=== PATIENT | female | born 1960 | race Caucasian/White ===

== ENCOUNTER 2018-03-09 21:29 | Inpatient (IN) | payer MEDICAID, OTHER ==
[~2018-03-09] VITALS: Ht 167.6 cm; Wt 83.9 kg
[2018-03-09 21:45] VITALS: BP 128/85
--- NOTE | 2018-03-09 21:48 | NUR ---
TO LOBBY, A/W BED AMBULATORY, SUBHASH LIM NOTED
--- NOTE | 2018-03-09 21:48 | NUR ---
PT PRESENTS TO ED WITH LEFT LOWER LEG PAIN 10/10 X3 DAYS. PT STATES SHE HAS CHRONIC LEFT HIP PAIN WITH INFECTOINS AND IS SEEING MD FOR EXISTING PROBLEMS. SHE C/O SEVERE 10/10 NEW LEFT LOWER LEG PAIN WITH REDNESS AND EDEMA. PT GAIT UNSTEADY D/T PAIN. VSS. SKIN INTACT. A&Ox4. POSTIONED IN BED FOR COMFORT WITH SIDE RAIL UP. ER MD AWARE. CONTINUE.
[2018-03-09] MEDS ORDERED: MORPHINE SULFATE 4 MG/ML SYR IVP ONE (23:10)
[2018-03-09] MEDS ORDERED: cefTRIAXone 2,000 MG in DEXTROSE 5% 100 ML IV ONE (23:10)
[2018-03-09] MEDS ORDERED: cefTRIAXone 2,000 MG VIAL ONE (23:23)
[2018-03-09 23:48] LABS: BASOPHILS % (AUTO) 0.6 % (0.0-2.0); EOSINOPHILS # (AUTO) 0.4 K/uL (0-0.4); EOSINOPHILS % (AUTO) 6.5 % (0.0-4.0); HEMATOCRIT 41.8 % (36-48); HEMOGLOBIN 14.3 g/dL (12.0-16.0); LYMPHOCYTES # (AUTO) 2.9 K/uL (2.5-16.5); LYMPHOCYTES % (AUTO) 41.7 % (20.5-51.1); MEAN CORPUSCULAR HEMOGLOBIN 31 pg (27-31); MEAN CORPUSCULAR HGB CONC 34 g/dL (33-37); MEAN CORPUSCULAR VOLUME 90.6 fL (80-94); MONOCYTES # (AUTO) 0.4 K/uL (0.8-1.0); MONOCYTES % (AUTO) 6.1 % (1.7-9.3); NEUTROPHILS # (AUTO) 3.1 K/uL (1.8-7.7); NEUTROPHILS % (AUTO) 45.1 % (42.2-75.2); PLATELET COUNT (AUTO) 218 K/uL (140-450); RED BLOOD CELL COUNT(AUTO) 4.61 MIL/uL (4.20-5.40); RED CELL DISTRIBUTION WIDTH 13.2 % (11.6-13.7); WHITE BLOOD COUNT (AUTO) 6.9 K/uL (4.8-10.8)
[2018-03-09 23:49] LABS: APPEARANCE,URINE CLEAR (CLEAR); BILIRUBIN,URINE NEGATIVE (NEGATIVE); BLOOD, URINE NEGATIVE (NEGATIVE); COLOR,URINE YELLOW (YELLOW); LEUKOCYTE ESTERASE ,URINE NEGATIVE (NEGATIVE); NITRITE, URINE NEGATIVE (NEGATIVE); UGLUCOSE NEGATIVE (NEGATIVE)
[2018-03-10 00:01] LABS: RBC,URINE 0-5 (RARE) /HPF (0-5)
[2018-03-10 00:09] LABS: ANION GAP 9.6 (8-16); CARBON DIOXIDE 27.7 mmol/L (21-32); CREATININE 0.8 mg/dL (0.6-1.3); POTASSIUM 4.3 mmol/L (3.5-5.1)
[2018-03-10 00:13] LABS: ALBUMIN 4.1 g/dL (3.4-5.0); TOTAL BILIRUBIN 0.2 mg/dL (0.0-1.0)
--- NOTE | 2018-03-10 00:20 | NUR ---
Patient appears to be resting comfortably in bed. Vital Signs within normal limits. Respirations even and unlabored.
--- NOTE | 2018-03-10 00:42 | NUR ---
Ultrasound at bedside.
[2018-03-10] MEDS ORDERED: ACET-2858 PO (01:45)
[2018-03-10] MEDS ORDERED: LORA-476 PO (01:46)
[2018-03-10] MEDS ORDERED: MORPHINE SULFATE 4 MG/ML SYR IVP ONE (02:05)
[2018-03-10 04:25] VITALS: BP 119/69
--- NOTE | 2018-03-10 04:25 | NUR ---
RECEIVED REPORT FROM ER NURSE AT BEDSIDE FOR CONTINUITY OF CARE. PT AAOX4. PT IV NOTED RAC 20G SALINE LOCK. PT HAS NO SOB NO S/S OF DISTRESS ON RA. BED LOWERED PT ORIENTED TO ROOM BED LOWERED CALL LIGHT WITHIN REACH.
--- NOTE | 2018-03-10 04:44 | NUR ---
REPORT GIVEN AND CARE TRANSFERED TO HIMANSHU KHAN, ROOM 104A. PT TRANSFERED VIA [facility] WITH VSS.
--- NOTE | 2018-03-10 06:15 | NUR ---
PATIENT HAS BEEN SCREENED AND CATEGORIZED LOW NUTRITION RISK. PATIENT WILL BE SEEN WITHIN 7 DAYS OF ADMISSION. 03/15/18 NGUYEN TRIANA MS, RDN
--- NOTE | 2018-03-10 07:15 | NUR ---
ENDORSED REPORT TO DAYSHIFT NURSE AT BEDSIDE FOR CONTINUITY OF CARE.
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
[2018-03-10 08:00] VITALS: BP 118/73
--- NOTE | 2018-03-10 08:00 | NUR ---
DR ARIAS GAVE THE OK FOR REG DIET. FNS GAVE PATIENT REG DIET. PATIENT CURRENTLY EATING. NO SIGNS OF DISTRESS. WILL CONTINUE TO MONITOR THE PATIENT.
[2018-03-10] MEDS ORDERED: VANCOMYCIN PER PHARMACY MC PRN (10:10)
[2018-03-10] MEDS: HYDROcodone/APAP 5/325 MG 1 TAB TAB PO PRN ×2 (10:12→20:48)
--- NOTE | 2018-03-10 10:50 | NUR ---
FINANCE ACCOUNTING INTERNSHIP AT BEDSIDE. PATIENT TOLERATING WELL. NO SIGNS OF DISTRESS. WILL CONTINUE TO MONITOR
--- NOTE | 2018-03-10 11:10 | NUR ---
PATIENT PICKED UP VIA WHEELCHAIR BY POLISHING PAD MOUNTER. WILL AWAIT HER ARRIVAL BACK
--- NOTE | 2018-03-10 11:43 | NUR ---
PATIENT IS BACK FROM CT SCAN. PATIENT BACK IN STABLE CONDITION, SHE IS CURRENTLY ON THE PHONE. NO SIGNS OF DISTRESS. WILL CONTINUE TO MONITOR
--- NOTE | 2018-03-10 12:34 | NUR ---
PATIENT IS EATING LUNCH. FAMILY AT BEDSIDE. NO SIGNS OF DISTRESS. WILL CONTINUE TO MONITOR
[2018-03-10] MEDS: VANCOMYCIN 1GM/DEXT 5% PREMIX 200 ML IV SCH (13:31)
--- NOTE | 2018-03-10 13:38 | NUR ---
ADMINISTERED VANCOMYCIN. IV IS CLEAN, DRY AND INTACT. WILL CONTINUE TO MONITOR THE PATIENT.
--- NOTE | 2018-03-10 14:35 | NUR ---
PATIENT SITTING IN BED. NO SIGNS OF DISTRESS. BED IN LOW POSITION. CALL LIGHT WITHIN REACH, WILL CONTINUE TO MONITOR
[2018-03-10] MEDS: MORPHINE SULFATE 2 MG/ML SYR IVP PRN (15:21)
[2018-03-10 16:00] VITALS: BP 108/64
--- NOTE | 2018-03-10 16:04 | NUR ---
PATIENT IS SLEEPING. NO SIGNS OF DISTRESS ON ROOM AIR. BED IN LOW POSITION. CALL LIGHT WITHIN REACH, WILL CONTINUE TO MONITOR
--- NOTE | 2018-03-10 16:42 | NUR ---
PATIENT AMBULATED TO THE RESTROOM AND BACK. NO SIGNS OF DISTRESS. BED IN LOW POSITION. CALL LIGHT WITHIN REACH. WILL CONTINUE TO MONITOR
--- NOTE | 2018-03-10 19:10 | NUR ---
GAVE BEDSIDE REPORT TO MEDICAL IMAGING SPECIALIST NURSE. PATIENT ENDORSED IN STABLE CONDITION
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
[2018-03-10 20:00] VITALS: BP 106/71
--- NOTE | 2018-03-10 22:00 | NUR ---
AFTER PAIN MEDIC GIVEN PT SLEEP QUIET NOT SIGNS OF PAIN
[2018-03-11] VITALS: BP 97/49
[2018-03-11] MEDS: VANCOMYCIN 1GM/DEXT 5% PREMIX 200 ML IV SCH ×2 (00:25→13:00)
--- NOTE | 2018-03-11 01:00 | NUR ---
PT AMBULATES TO THE RESTROOM NOT DISTRESS NOTED REMAIN STABLE AT THIS TIME
--- NOTE | 2018-03-11 04:00 | NUR ---
SPONGE BATH GIVEN LINEN CHANGED LEFT LE ON PILLOW ELEVATION DENIES ANY PAIN OR DISCOMFORT AT THIS TIME
[2018-03-11] MEDS: HYDROcodone/APAP 5/325 MG 1 TAB TAB PO PRN (05:11)
--- NOTE | 2018-03-11 06:04 | NUR ---
AFTER PAIN MEDIC GIVEN PT SLEEPS QUIET NOT PAIN NOTED
[2018-03-11 07:07] LABS: BASOPHILS % (AUTO) 0.8 % (0.0-2.0); EOSINOPHILS # (AUTO) 0.3 K/uL (0-0.4); EOSINOPHILS % (AUTO) 5.8 % (0.0-4.0); HEMATOCRIT 41.7 % (36-48); HEMOGLOBIN 14.3 g/dL (12.0-16.0); LYMPHOCYTES % (AUTO) 39.1 % (20.5-51.1); MEAN CORPUSCULAR HEMOGLOBIN 31 pg (27-31); MEAN CORPUSCULAR HGB CONC 34 g/dL (33-37); MEAN CORPUSCULAR VOLUME 90.7 fL (80-94); MONOCYTES # (AUTO) 0.5 K/uL (0.8-1.0); MONOCYTES % (AUTO) 9.2 % (1.7-9.3); NEUTROPHILS # (AUTO) 2.3 K/uL (1.8-7.7); NEUTROPHILS % (AUTO) 45.1 % (42.2-75.2); PLATELET COUNT (AUTO) 198 K/uL (140-450); RED CELL DISTRIBUTION WIDTH 13.2 % (11.6-13.7); WHITE BLOOD COUNT (AUTO) 5.2 K/uL (4.8-10.8)
[2018-03-11 07:33] LABS: ALBUMIN 3.5 g/dL (3.4-5.0); ANION GAP 11.9 (8-16); CREATININE 0.5 mg/dL (0.6-1.3); POTASSIUM 3.9 mmol/L (3.5-5.1); TOTAL BILIRUBIN 0.4 mg/dL (0.0-1.0)
[2018-03-11 08:00] VITALS: BP 108/73
[2018-03-11] MEDS: MORPHINE SULFATE 2 MG/ML SYR IVP PRN (10:07)
[2018-03-11] MEDS ORDERED: CLIN300C2 PO (10:20)
--- NOTE | 2018-03-11 10:40 | NUR ---
BLOOD TRANSFUSION STARTED AT 1040 . VERIFIED WITH SECOND NURSE THE BLOOD PRODUCT. PRE VS NOTED T 98.0, , HR 74, R 14, PO2 SAT 985 RA, BP 155/72. BLOOD INFUSING WELL. NO SIGN OF DISTRESS NOTED. PT IN CONTINUOS MONITORING BLOOD TRANSFUSION PROTOCOL. PT TOLERATING WELL. Addendum: 03/11/18 at 1118 by Channing Mckeon RN WRONG PT. BLOOD TRANSFUSION DONE FOR PT 106 A.
--- NOTE | 2018-03-11 12:45 | NUR ---
INFORMED THAT PT HAS DC ORDER. WILL WORK ON HER DC PAPER.
--- NOTE | 2018-03-11 13:00 | NUR ---
PT GIVEN INSTRUCTION OF HER DISCHARGE . INFORMED TO GO TO PCP WITHIN 3-5 DAYS OF DC. PT IN STABLE CONDITION. PT WAITING ON RIDE. ALL IV ACCESS TAKEN OUT. ID BRACELET TAKEN OUT. INFORMED TO LET KNOW WHEN PT HAS RIDE. VERBALISED UNDERSTANDING.
--- NOTE | 2018-03-11 13:40 | NUR ---
PT LEFT HOSPITAL WITH ALL HER BELONGS, WALKED SELF OUT . IN STABLE CONDITION. PT VERBALIZED UNDERSTANDING OF HER DISCHARGE TEACHING. PT WENT HOME WITH PRESCRIPTION AND DISCHARGE PACKET.
--- NOTE | 2018-03-14 09:56 | NUR ---
RETRO PER [facility] COORDINATOR NIC PH# [phone] [phone], REVIEW SHOULD ONLY BE SENT TO [facility]. ER 'S NOTE, H&P, CONSULTATION NOTE FAXED TO [facility] [phone] BALWINDER OLVERA PH# [phone].
== END 2018-03-11 13:40 | disposition home or self-care (01) | DRG 383 ==
LOC: MED 21:29 → MTU 03-10 03:52
PROVIDERS: ADMIT Internal Medicine; ATTEND Internal Medicine
DX: L03.116 Cellulitis of left lower limb (principal); S31.104A Unspecified open wound of abdominal wall, left lower quadrant without penetration into peritoneal cavity, initial encounter; Z79.899 Other long term (current) drug therapy; Z96.652 Presence of left artificial knee joint; X58.XXXA Exposure to other specified factors, initial encounter; Z96.642 Presence of left artificial hip joint; Z88.6 Allergy status to analgesic agent; Z88.0 Allergy status to penicillin; Z98.891 History of uterine scar from previous surgery; Z87.828 Personal history of other (healed) physical injury and trauma; Z87.81 Personal history of (healed) traumatic fracture; Y93.89 Activity, other specified; Y92.89 Other specified places as the place of occurrence of the external cause; Y99.8 Other external cause status
CPT/HCPCS: 36415; 72194; 73590; 80053; 81001; 85025; 85651; 86140; 87040; 87070; 87075; 87081; 87086; 87186; 93970; 96365; 96375; 99285; J0696; J2270; J3370; J7030; Q0092

== ENCOUNTER 2018-08-26 14:56 | Inpatient (IN) | payer MEDICAID ==
[~2018-08-26] VITALS: Ht 167.6 cm; Wt 85.3 kg
[~2018-08-26 14:56] MED LIST: CLIN300C2 PO; HYDR-5092 PO; LORA-476 PO
[2018-08-26 15:20] VITALS: BP 120/96
--- NOTE | 2018-08-26 15:51 | NUR ---
PT AMBULATED TO BED 11.
--- NOTE | 2018-08-26 15:53 | NUR ---
PATIENT PRESENTS TO ED WITH C/O RECURRING AND WORSENING PAIN LEFT HIP >1 MONTH OPEN WOUND---HAS UPCOMING SURGICAL REPAIR OF HIP APPT DENIES N/V/D; SKIN IS PINK/WARM/DRY; AAOX4 WITH EVEN AND STEADY GAIT; LUNGS CLEAR BL; HR EVEN AND REGULAR; PT DENIES ANY FEVER, CP, SOB, OR COUGH AT THIS TIME; PATIENT STATES PAIN OF 10/10 AT THIS TIME; VSS; PATIENT POSITIONED FOR COMFORT; HOB ELEVATED; BEDRAILS UP X2; BED DOWN. ER MD MADE AWARE OF PT STATUS.
--- NOTE | 2018-08-26 16:30 | NUR ---
COLLECTED CULTURE SWAB OF LEFT HIP WOUND---APPROPRIATE IDENTIFIER APPLIED AND HANDED TO LAB
[2018-08-26] MEDS ORDERED: NACL 0.9% 1,000 ML IV ONE (16:31)
--- NOTE | 2018-08-26 16:46 | NUR ---
EKG COMPLETED; PT TO RADIOLOGY VIA [facility]
[2018-08-26 16:54] LABS: APPEARANCE,URINE CLEAR (CLEAR); BILIRUBIN,URINE NEGATIVE (NEGATIVE); BLOOD, URINE NEGATIVE (NEGATIVE); COLOR,URINE YELLOW (YELLOW); LEUKOCYTE ESTERASE ,URINE NEGATIVE (NEGATIVE); NITRITE, URINE NEGATIVE (NEGATIVE); UGLUCOSE NEGATIVE (NEGATIVE)
[2018-08-26] MEDS ORDERED: MORPHINE SULFATE 4 MG/ML SYR IVP ONE (17:05)
--- NOTE | 2018-08-26 17:29 | NUR ---
MEDICATED FOR PAIN CONTROL--WILL CONTINUE TO OBSERVE AWAITS AVAILABLE ROOM FOR ADMISSION
[2018-08-26 17:30] LABS: BASOPHILS % (AUTO) 0.6 % (0.0-2.0); EOSINOPHILS # (AUTO) 0.4 K/uL (0-0.4); EOSINOPHILS % (AUTO) 5.7 % (0.0-4.0); HEMATOCRIT 41.9 % (36-48); HEMOGLOBIN 13.9 g/dL (12.0-16.0); LYMPHOCYTES # (AUTO) 3.1 K/uL (2.5-16.5); MEAN CORPUSCULAR HEMOGLOBIN 31 pg (27-31); MEAN CORPUSCULAR HGB CONC 33 g/dL (33-37); MEAN CORPUSCULAR VOLUME 92.3 fL (80-94); MONOCYTES # (AUTO) 0.5 K/uL (0.8-1.0); NEUTROPHILS # (AUTO) 3.2 K/uL (1.8-7.7); NEUTROPHILS % (AUTO) 44.7 % (42.2-75.2); PLATELET COUNT (AUTO) 227 K/uL (140-450); RED BLOOD CELL COUNT(AUTO) 4.53 MIL/uL (4.20-5.40); RED CELL DISTRIBUTION WIDTH 13.3 % (11.6-13.7); WHITE BLOOD COUNT (AUTO) 7.3 K/uL (4.8-10.8)
[2018-08-26 17:47] LABS: ANION GAP 11.7 (8-16); CARBON DIOXIDE 28.3 mmol/L (21-32); CREATININE 0.8 mg/dL (0.6-1.3); PROTHROMBIN TIME 8.8 secs (10.8-13.4); TOTAL BILIRUBIN 0.3 mg/dL (0.0-1.0)
--- NOTE | 2018-08-26 18:24 | NUR ---
WITH PT AND HER DAUGHTER SONIA
[2018-08-26] MEDS ORDERED: ALBUTEROL 0.083% 2.5 MG/3 ML NEBU INH PRN (18:55)
[2018-08-26] MEDS ORDERED: ACETAMINOPHEN 325 MG TAB PO PRN (18:55)
[2018-08-26] MEDS ORDERED: ONDANSETRON 4 MG/2 ML VIAL IVP PRN (18:55)
[2018-08-26] MEDS ORDERED: VANCOMYCIN PER PHARMACY MC PRN (18:55)
--- NOTE | 2018-08-26 19:15 | NUR ---
RECEIVED REPORT FROM GUEST SERVICES COORDINATOR FOR CONTINUITY OF CARE. PT A/OX4 ON ROOM AIR. PT IS ABLE TO MAKE NEEDS KNOWN, ABLE TO FOLLOW COMMANDS. PT AMBULATES WITH STEADY GAIT. PT HAS OPEN WOUND TO LEFT HIP WITH DRAINAGE, PT ALSO HAS OTHER HEALED SCARS ON LEFT LEG. PT HAS A 20G IV TO LEFT AC, ASYMPTOMATIC AND INTACT. VITAL SIGNS WITHIN NORMAL LIMITS. PT STABLE, DENIES HAVING ANY PAIN, NO SIGNS OF DISTRESS NOTED AT THIS TIME. PT POSITIONED FOR COMFORT. BED IN LOWEST POSITION, BED ALARM ON. WILL CONTINUE TO MONITOR. OBTAINED MRSA SWAB AND SENT TO LAB.
--- NOTE | 2018-08-26 19:19 | NUR ---
Pt transferred to Med/Surg via [facility] 125-A
[2018-08-26 20:00] VITALS: BP 107/74
[2018-08-26] MEDS ORDERED: LEVOFLOXACIN 750 MG/D5W PREMIX 150 ML IV SCH (20:00)
[2018-08-26] MEDS ORDERED: VANCOMYCIN 1,250 MG in DEXTROSE 5% 500 ML IV SCH ×2 (20:30→22:30)
[2018-08-26] MEDS: MORPHINE SULFATE 4 MG/ML SYR IVP PRN (20:55)
--- NOTE | 2018-08-26 20:57 | NUR ---
ADMINISTERED SCHEDULED MEDICATIONS, PT TOLERATED WELL.
[2018-08-26] MEDS ORDERED: VANCOMYCIN 1,000 MG VIAL ONE (21:22)
--- NOTE | 2018-08-26 21:45 | NUR ---
PT STATES IV IS BOTHERING HER AND WANTS TO CHANGE IV LOCATION TO ANYWHERE THAT ISN'T THE AC. STARTED NEW 20G IV TO LEFT FOREARM, ONE TRY, PT TOLERATED WELL.
[2018-08-26] MEDS: LORazepam 2 MG/ML VIAL IVP PRN (23:03)
--- NOTE | 2018-08-26 23:04 | NUR ---
PT FEELING ANXIOUS AND REQUESTED ANXIETY MEDICATION, ADMINISTERED ATIVAN ORDERED AND PT TOLERATED WELL.
--- NOTE | 2018-08-27 | NUR ---
VITAL SIGNS WITHIN NORMAL LIMITS. PT STABLE, DENIES HAVING ANY PAIN, NO SIGNS OF DISTRESS NOTED AT THIS TIME. PT POSITIONED FOR COMFORT. BED IN LOWEST POSITION, BED ALARM ON. WILL CONTINUE TO MONITOR.
[2018-08-27] MEDS: MORPHINE SULFATE 4 MG/ML SYR IVP PRN (02:56)
--- NOTE | 2018-08-27 03:08 | NUR ---
PT WAS MEDICATED FOR PAIN AT 02:56, PT NOW RELAXING AND STATES 0/10 PAIN.
[2018-08-27] MEDS: LORazepam 2 MG/ML VIAL IVP PRN ×2 (05:55→17:43)
--- NOTE | 2018-08-27 05:57 | NUR ---
PT C/O ANXIETY AND REQUESTED ATIVAN MEDICATION. ADMINISTERED ATIVAN, PT TOLERATED WELL. WILL CONTINUE TO MONITOR.
--- NOTE | 2018-08-27 07:33 | NUR ---
ENDORSED PT TO DAY SHIFT ERIN SALINAS FOR CONTINUITY OF CARE. PT IN STABLE CONDITION.
--- NOTE | 2018-08-27 07:34 | NUR ---
RECEIVED BEDSIDE REPORT FROM C WINFORMS DEVELOPER NURSE MICKEY. PATIENT SLEEPING AT THIS TIME. L HIP CELLULITIS WITH 3 OPENINGS. PATIENT AMBULATORY AND CONTINENT. IV ON L FA 20 G SALINE LOCK, IV CLEAN DRY INTACT AND PATENT. PATIENT ON MED SURGE AND STANDARD PRECAUTIONS. BED IN LOW POSITION CALL LIGHT WITHIN REACH. WILL CONTINUE TO MONITOR.
[2018-08-27 07:45] LABS: BASOPHILS % (AUTO) 0.7 % (0.0-2.0); EOSINOPHILS # (AUTO) 0.4 K/uL (0-0.4); EOSINOPHILS % (AUTO) 6.1 % (0.0-4.0); HEMATOCRIT 38.1 % (36-48); HEMOGLOBIN 12.6 g/dL (12.0-16.0); LYMPHOCYTES % (AUTO) 49.2 % (20.5-51.1); MEAN CORPUSCULAR HEMOGLOBIN 31 pg (27-31); MEAN CORPUSCULAR HGB CONC 33 g/dL (33-37); MEAN CORPUSCULAR VOLUME 92.5 fL (80-94); MONOCYTES # (AUTO) 0.4 K/uL (0.8-1.0); MONOCYTES % (AUTO) 6.2 % (1.7-9.3); NEUTROPHILS # (AUTO) 2.3 K/uL (1.8-7.7); NEUTROPHILS % (AUTO) 37.8 % (42.2-75.2); PLATELET COUNT (AUTO) 199 K/uL (140-450); RED BLOOD CELL COUNT(AUTO) 4.12 MIL/uL (4.20-5.40); RED CELL DISTRIBUTION WIDTH 13.4 % (11.6-13.7); WHITE BLOOD COUNT (AUTO) 6.1 K/uL (4.8-10.8)
[2018-08-27 08:00] VITALS: BP 104/65
[2018-08-27] MEDS: MORPHINE SULFATE 2 MG/ML SYR IVP PRN ×3 (08:27→19:59)
--- NOTE | 2018-08-27 08:30 | NUR ---
PATIENT HAS BEEN SCREENED AND CATEGORIZED HIGH NUTRITION RISK. PATIENT WILL BE SEEN WITHIN 1-2 DAYS OF ADMISSION. 08/27/18-08/28/[address]
[2018-08-27] MEDS: ENOXAPARIN 40 MG/0.4 ML SYR SUBQ SCH (08:31)
--- NOTE | 2018-08-27 08:40 | NUR ---
ADMINISTERED SCHEDULED MEDS AND MORPHINE PRN FOR L HIP PAIN OF 6/10. PATIENT TOLERATED WELL. WILL CONTINUE TO MONITOR.
[2018-08-27 08:44] LABS: ALBUMIN 3.3 g/dL (3.4-5.0); ANION GAP 9.3 (8-16); CREATININE 0.7 mg/dL (0.6-1.3); MAGNESIUM 2.2 mg/dL (1.8-2.4); PHOSPHORUS 3.7 mg/dL (2.5-4.9); POTASSIUM 4.3 mmol/L (3.5-5.1); TOTAL BILIRUBIN 0.3 mg/dL (0.0-1.0)
[2018-08-27] MEDS ORDERED: VANCOMYCIN 1GM/DEXT 5% PREMIX 200 ML IV SCH (10:00)
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
[2018-08-27] MEDS ORDERED: ALGINATE DRESSING MC SCH (10:30)
--- NOTE | 2018-08-27 11:00 | NUR ---
INFORMED PATIENT OF CT SCAN OF L HIP SCHEDULED FOR TOMORROW. PATIENT VERBALIZED UNDERSTANDING. Addendum: 08/27/18 at 1355 by Joselin Han RN WRONG PROCEDURE. PLEASE DISREGARD CT SCAN. NM BONE LIMITED FOR L HIP OSTEO SCHEDULED TOMORROW. PATIENT AWARE.
--- NOTE | 2018-08-27 12:07 | NUR ---
PATIENT SLEEPING. ON ROOM AIR, WITH NO DISTRESS NOTED. WILL CONTINUE TO MONITOR.
--- NOTE | 2018-08-27 13:03 | NUR ---
2 RD INITIAL ASSESSMENT COMPLETED PLEASE REFER TO NUTRITION ASSESSMENT UNDER CARE ACTIVITY FOR ESTIMATED NUTRITIONAL NEEDS. 1. RECOMMEND REGULAR DIET + MARLIN QD 2. RD TO FOLLOW UP ON ADEQUATE PO INTAKE 3. RD TO FOLLOW-UP 5-7 DAYS, LOW RISK ANGIE NORTON, RD
--- NOTE | 2018-08-27 13:22 | NUR ---
PATIENT WATCHING TV AND ON HER CELL PHONE. ON ROOM AIR, NO DISTRESS NOTED. WILL CONTINUE TO MONITOR.
--- NOTE | 2018-08-27 14:35 | NUR ---
Mouse Breeder Note: I met with patient at bedside. I introduced myself to patient and explained my role as a medical representative. Patient lives at home with her parents, sister, and niece. Patient's daughter Thaddeus is her [employer] [employer] caregiver. She uses a cane to ambulate as needed. Patient's pcp is and her last appt with pcp was last month. She does not have any difficulty filling her prescriptions. She was not receiving wound care services prior to hospital admission. Patient's pcp referred her to a general surgeon to evaluate wound. She is planning to tell her daughter Thaddeus to come to hospital for wound care teaching. She would like Thaddeus to assist her with wound care at home. I provided her with information on [facility] .
--- NOTE | 2018-08-27 15:14 | NUR ---
PATIENT IS SLEEPING. NO DISTRESS NOTED, ON ROOM AIR. WILL CONTINUE TO MONITOR.
[2018-08-27 16:00] VITALS: BP 105/58
--- NOTE | 2018-08-27 17:47 | NUR ---
ADMINISTERED ATIVAN PRN. PATIENT STATED SHE IS FEELING ANXIOUS AND REQUESTED IT. PATIENT TOLERATED MED WELL. WILL CONTINUE TO MONITOR.
--- NOTE | 2018-08-27 19:05 | NUR ---
GAVE REPORT TO DRIVER GUARD NURSE. PATIENT ENDORSED IN STABLE CONDITION.
--- NOTE | 2018-08-27 19:10 | NUR ---
RECEIVED PATIENT AWAKE LYING COMFORTABLY ON BED. RESPIRATION EVEN AND UNLABORED IN ROOM AIR. PATIENT A0X4, ABLE TO VERBALIZED NEEDS. EXPLAINED PLAN OF CARE AND VERBALIZED UNDERSTANDING. BED IN LOW LOCKED POSITION. CALL LIGHT WITHIN REACH. WILL CONTINUE TO MONITOR.
--- NOTE | 2018-08-27 20:00 | NUR ---
V/S TAKEN BASELINE. NO S/S OF DISTRESS NOTED AT THIS TIME. WILL CONTINUE TO MONITOR.
[2018-08-28] VITALS: BP 132/63
--- NOTE | 2018-08-28 | NUR ---
V/S TAKEN AND RECORDED WNL. PATIENT BACK TO SLEEP IN COMFORTABLE POSITION. NO S/S OF DISTRESS NOTED. CALL LIGHT WITHIN REACH. ALL NEEDS ATTENDED. WILL CONTINUE TO MONITOR.
--- NOTE | 2018-08-28 02:00 | NUR ---
SEEN PATIENT ASLEEP BUT EASILY AROUSABLE. NO S/S OF DISTRESS NOTED .BED IN LOW LOCKED POSITION. CALL LIGHT WITHIN REACH.
--- NOTE | 2018-08-28 04:00 | NUR ---
PATIENT SEEN ASLEEP BUT EASILY AROUSABLE. DENIES PAIN AT THIS TIME. ALL NEEDS ATTENDED.CALL LIGHT WITHIN REACH.
--- NOTE | 2018-08-28 07:25 | NUR ---
REPORT RECEIVED FROM SPINE SPECIALIST NURSE, PT AAOX4, RESP EVEN UNLABORED, SKIN WARM DRY COLOR WNL, POC REVIEWD, ALL SAFETY MEASURES IN PLACE, WILL CONTINUE TO MONITOR.
[2018-08-28] MEDS: MORPHINE SULFATE 4 MG/ML SYR IVP PRN (07:53)
[2018-08-28 08:00] VITALS: BP 91/59
[2018-08-28] MEDS: LORazepam 2 MG/ML VIAL IVP PRN ×2 (08:49→17:00)
--- NOTE | 2018-08-28 08:53 | NUR ---
PT C/O ANXIETY, PT SITTING IN BED WATCHING TV, APPEARS IN NAD, PT STATES SHE TAKES ATIVAN 3 TIMES A DAY AT HOME PRESCRIBED BY DR Skyla MCNULTY, PRN ATIVAN GIVEN, POC REVIEWED, WILL CONTINUE TO MONITOR.
[2018-08-28] MEDS: ENOXAPARIN 40 MG/0.4 ML SYR SUBQ SCH (09:00)
--- NOTE | 2018-08-28 11:30 | NUR ---
PT RET[facility]ED [facility].
--- NOTE | 2018-08-28 12:55 | NUR ---
WOUND CARE DONE, PHOTO TAKEN
[2018-08-28] MEDS: MORPHINE SULFATE 2 MG/ML SYR IVP PRN (13:22)
--- NOTE | 2018-08-28 15:20 | NUR ---
AWAITING NUC MED BONE EXAM
[2018-08-28 16:00] VITALS: BP 109/63
--- NOTE | 2018-08-28 17:06 | NUR ---
PT NOW TAKEN TO NUC MED IN WHEELCHAIR.
--- NOTE | 2018-08-28 18:50 | NUR ---
DISCHARGE INSTRUCTION GIVEN AND EXPLAINED TO PT, PT VERBALIZED FULL UNDERSTANDING, IV DC'D, CATH TIP INTACT, BLEEDING CONTROLLED, PT UP OUT OF BED WITHOUT PROBLEM, AMBULATES WITH LIMP BUT STEADY GAIT, ESCORTED OUT TO FRONT LOBBY, FAMILY TO COME PICK HER UP.
[2018-08-30] MEDS ORDERED: ALGINATE DRESSING MC SCH (09:00)
== END 2018-08-28 18:50 | disposition home or self-care (01) | DRG 383 ==
LOC: MED 14:56 → MMU 18:59
PROVIDERS: ADMIT Hospitalist; ATTEND Hospitalist
DX: L03.116 Cellulitis of left lower limb (principal); F17.210 Nicotine dependence, cigarettes, uncomplicated; M16.12 Unilateral primary osteoarthritis, left hip; F41.9 Anxiety disorder, unspecified; M17.12 Unilateral primary osteoarthritis, left knee; M19.072 Primary osteoarthritis, left ankle and foot; Z88.0 Allergy status to penicillin; Z88.8 Allergy status to other drugs, medicaments and biological substances; Z80.9 Family history of malignant neoplasm, unspecified; Z83.3 Family history of diabetes mellitus; Z82.49 Family history of ischemic heart disease and other diseases of the circulatory system; G89.29 Other chronic pain; T40.605A Adverse effect of unspecified narcotics, initial encounter; Y92.89 Other specified places as the place of occurrence of the external cause
CPT/HCPCS: 36415; 71045; 72192; 78315; 80053; 81003; 83605; 83735; 84100; 85025; 85610; 85651; 85730; 86140; 87040; 87070; 87081; 87086; 87186; 93005; 96361; 96374; 99285; A4649; A9503; J1650; J1956; J2060; J2270; J3370; J7030; J7060; Q0092

== ENCOUNTER 2018-09-21 21:44 | Emergency (ER) | payer MEDICAID ==
[~2018-09-21] VITALS: Ht 167.6 cm; Wt 86.6 kg
[~2018-09-21 21:44] MED LIST changes: -CLIN300C2 PO
[2018-09-21 22:07] VITALS: BP 143/89
--- NOTE | 2018-09-21 22:48 | NUR ---
PT AMBULATED TO ER ED 04
[2018-09-21] MEDS ORDERED: MORPHINE SULFATE 4 MG/ML SYR IVP ONE (23:05)
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
[2018-09-21 23:29] LABS: BASOPHILS % (AUTO) 0.6 % (0.0-2.0); EOSINOPHILS # (AUTO) 0.4 K/uL (0-0.4); EOSINOPHILS % (AUTO) 4.5 % (0.0-4.0); HEMATOCRIT 38.5 % (36-48); HEMOGLOBIN 13.1 g/dL (12.0-16.0); LYMPHOCYTES # (AUTO) 3.5 K/uL (2.5-16.5); LYMPHOCYTES % (AUTO) 43.9 % (20.5-51.1); MEAN CORPUSCULAR HEMOGLOBIN 32 pg (27-31); MEAN CORPUSCULAR HGB CONC 34 g/dL (33-37); MEAN CORPUSCULAR VOLUME 92.6 fL (80-94); MONOCYTES # (AUTO) 0.5 K/uL (0.8-1.0); NEUTROPHILS # (AUTO) 3.6 K/uL (1.8-7.7); PLATELET COUNT (AUTO) 244 K/uL (140-450); RED BLOOD CELL COUNT(AUTO) 4.16 MIL/uL (4.20-5.40); RED CELL DISTRIBUTION WIDTH 13.3 % (11.6-13.7)
[2018-09-21 23:41] LABS: ANION GAP 15.7 (8-16); CREATININE 0.8 mg/dL (0.6-1.3); POTASSIUM 3.7 mmol/L (3.5-5.1)
[2018-09-21 23:46] LABS: ALBUMIN 3.6 g/dL (3.4-5.0); TOTAL BILIRUBIN 0.2 mg/dL (0.0-1.0)
[2018-09-22] MEDS ORDERED: MORPHINE SULFATE 4 MG/ML SYR IVP ONE (00:10)
[2018-09-22 00:30] VITALS: BP 120/54
--- NOTE | 2018-09-22 00:30 | NUR ---
Patient discharged with v/s stable. Written and verbal after care instructions given and explained. Patient verbalized understanding. Ambulatory with steady gait. All questions addressed prior to discharge. Advised to follow up with PMD.
== END 2018-09-22 00:30 | disposition home or self-care (01) ==
LOC: MED 21:44
DX: M25.552 Pain in left hip (principal); Z88.0 Allergy status to penicillin; Z88.8 Allergy status to other drugs, medicaments and biological substances; Z79.899 Other long term (current) drug therapy
CPT/HCPCS: 36415; 80053; 83605; 85025; 87040; 93005; 96374; 96376; 99283; J2270

== ENCOUNTER 2018-10-22 17:21 | Emergency (ER) | payer MEDICAID ==
[~2018-10-22] VITALS: Ht 167.6 cm; Wt 84.8 kg
[2018-10-22 17:53] VITALS: BP 131/76
--- NOTE | 2018-10-22 19:16 | NUR ---
PT TO ER BED 1
--- NOTE | 2018-10-22 19:20 | NUR ---
PT TO ED WITH C/O L HIP PAIN X TODAY. PT DENIES ANY TRAUMA OR INJURY. PT REPORTS CHRONIC HIP PAIN HOWEVER, INCREASE IN PAIN TODAY. PT ABLE TO AMBULATE WITH STEADY GAIT. FULL ROM. CMS INTACT. PT PLACED INTO BED, PENDING MD RUSSO.
[2018-10-22] MEDS ORDERED: MORPHINE SULFATE 4 MG/ML SYR IVP ONE ×2 (20:05→21:35)
[2018-10-22 20:51] LABS: BASOPHILS % (AUTO) 0.6 % (0.0-2.0); EOSINOPHILS # (AUTO) 0.4 K/uL (0-0.4); EOSINOPHILS % (AUTO) 5.6 % (0.0-4.0); HEMATOCRIT 41.4 % (36-48); HEMOGLOBIN 13.9 g/dL (12.0-16.0); LYMPHOCYTES # (AUTO) 3.3 K/uL (2.5-16.5); LYMPHOCYTES % (AUTO) 43.7 % (20.5-51.1); MEAN CORPUSCULAR HEMOGLOBIN 31 pg (27-31); MEAN CORPUSCULAR HGB CONC 34 g/dL (33-37); MEAN CORPUSCULAR VOLUME 92.6 fL (80-94); MONOCYTES # (AUTO) 0.5 K/uL (0.8-1.0); MONOCYTES % (AUTO) 6.8 % (1.7-9.3); NEUTROPHILS # (AUTO) 3.3 K/uL (1.8-7.7); NEUTROPHILS % (AUTO) 43.3 % (42.2-75.2); PLATELET COUNT (AUTO) 243 K/uL (140-450); RED BLOOD CELL COUNT(AUTO) 4.47 MIL/uL (4.20-5.40); WHITE BLOOD COUNT (AUTO) 7.6 K/uL (4.8-10.8)
[2018-10-22 21:01] LABS: ANION GAP 10.9 (8-16); CARBON DIOXIDE 28.5 mmol/L (21-32); CREATININE 0.8 mg/dL (0.6-1.3); POTASSIUM 4.4 mmol/L (3.5-5.1)
[2018-10-22 21:07] LABS: ALBUMIN 3.9 g/dL (3.4-5.0); TOTAL BILIRUBIN 0.2 mg/dL (0.0-1.0)
--- NOTE | 2018-10-22 21:27 | NUR ---
PAIN REDUCED TO 5/10 POST MORPHINE ADMIN. WILL CONTINUE TO MONITOR.
[2018-10-22 21:53] VITALS: BP 135/80
--- NOTE | 2018-10-22 21:53 | NUR ---
Patient discharged with v/s stable. Written and verbal after care instructions given and explained. Patient alert, oriented and verbalized understanding of instructions. Ambulatory with steady gait. All questions addressed prior to discharge. ID band removed. Patient advised to follow up with PMD.
== END 2018-10-22 21:53 | disposition home or self-care (01) ==
LOC: MED 17:21
DX: M25.552 Pain in left hip (principal); Z88.0 Allergy status to penicillin; Z88.8 Allergy status to other drugs, medicaments and biological substances; Z79.899 Other long term (current) drug therapy
CPT/HCPCS: 36415; 80053; 85025; 96374; 96376; 99283; J2270

== ENCOUNTER 2018-10-25 13:37 | Emergency (ER) | payer MEDICAID ==
[~2018-10-25] VITALS: Ht 167.6 cm; Wt 85.3 kg
[2018-10-25 13:48] VITALS: BP 102/60
--- NOTE | 2018-10-25 13:55 | NUR ---
DR. JAIME AT BEDSIDE
[2018-10-25] MEDS ORDERED: MORPHINE SULFATE 4 MG/ML SYR IM ONE (14:05)
[2018-10-25] MEDS ORDERED: ONDANSETRON 4 MG ODT PO ONE (14:05)
--- NOTE | 2018-10-25 14:38 | NUR ---
received report from irina anglin, pt staying in bed, on the phone. introduced myself, will continue to monitor.
--- NOTE | 2018-10-25 14:38 | NUR ---
S/P TRIPPED AND FALL TODAY. NO LOC, NO VOMITING. PREVIOUS LT. HIP AND LT. KNEE SURGERY.DENIES HX:,TAKES PERCOSET FOR PAIN. BP FIELD 132/84 . DENIES N/V/D; SKIN IS PINK/WARM/DRY; AAOX4, LUNGS CLEAR BL; HR EVEN AND REGULAR; PT DENIES ANY FEVER, CP, SOB, OR COUGH AT THIS TIME; PATIENT STATES PAIN OF 10/10 AT THIS TIME; VSS; PATIENT POSITIONED FOR COMFORT; HOB ELEVATED; BEDRAILS UP X2; BED DOWN. ER MD MADE AWARE OF PT STATUS.
[2018-10-25] MEDS ORDERED: HYDROcodone/APAP 5/325 MG 1 TAB TAB PO ONE (15:25)
[2018-10-25 16:02] VITALS: BP 102/60
--- NOTE | 2018-10-25 16:03 | NUR ---
Patient discharged with v/s stable. Written and verbal after care instructions given and explained. Patient alert, oriented and verbalized understanding of instructions. AMBULATE WITH CRUTCHES to car. All questions addressed prior to discharge. ID band removed. Patient advised to follow up with PMD. Rx of NORCO given. Patient educated on indication of medication including possible reaction and side effects. Opportunity to ask questions provided and answered.
== END 2018-10-25 16:03 | disposition home or self-care (01) ==
LOC: MED 13:37
DX: S83.92XA Sprain of unspecified site of left knee, initial encounter (principal); Z79.891 Long term (current) use of opiate analgesic; Z79.899 Other long term (current) drug therapy; Z88.0 Allergy status to penicillin; Z88.6 Allergy status to analgesic agent; W01.0XXA Fall on same level from slipping, tripping and stumbling without subsequent striking against object, initial encounter; Y93.89 Activity, other specified; Y92.89 Other specified places as the place of occurrence of the external cause; Y99.8 Other external cause status
CPT/HCPCS: 73552; 73562; 96372; 99283; J2270; Q0092; Q0162

== ENCOUNTER 2018-11-25 14:38 | Emergency (ER) | payer MEDICAID ==
[~2018-11-25] VITALS: Ht 170.2 cm; Wt 86.3 kg
[2018-11-25 14:41] VITALS: BP 131/78
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
--- NOTE | 2018-11-25 15:47 | NUR ---
DR FLORES AT BEDSIDE FOR PT EVALUATION
[2018-11-25] MEDS ORDERED: HYDROcodone/APAP 5/325 MG 1 TAB TAB PO ONE (16:05)
[2018-11-25] MEDS ORDERED: KETOROLAC 30 MG/ML VIAL IM ONE (16:05)
[2018-11-25] MEDS ORDERED: MORPHINE SULFATE 4 MG/ML SYR IM ONE (16:30)
[2018-11-25 16:53] VITALS: BP 128/74
--- NOTE | 2018-11-25 16:53 | NUR ---
Patient discharged with v/s stable. Written and verbal after care instructions given and explained. Patient alert, oriented and verbalized understanding of instructions. Ambulatory with steady gait. All questions addressed prior to discharge. ID band removed. Patient advised to follow up with PMD. Rx of Danielson 5 mg-325 mg, Narcan nasal spray given. Patient educated on indication of medication including possible reaction and side effects. Opportunity to ask questions provided and answered.
== END 2018-11-25 16:53 | disposition home or self-care (01) ==
LOC: MED 14:38
DX: M25.552 Pain in left hip (principal); Z88.0 Allergy status to penicillin; Z88.8 Allergy status to other drugs, medicaments and biological substances; Z79.899 Other long term (current) drug therapy
CPT/HCPCS: 96372; 99283; J2270; J1885

== ENCOUNTER 2018-12-17 14:30 | Emergency (ER) | payer MEDICAID ==
[~2018-12-17] VITALS: Ht 167.6 cm; Wt 88.1 kg
[2018-12-17 14:51] VITALS: BP 123/91
--- NOTE | 2018-12-17 15:21 | NUR ---
PT TO ER BED 8
--- NOTE | 2018-12-17 15:48 | NUR ---
58 Y FEMALE BIB SELF C/O LT LEG PAIN X4 DAYS. PT REPORTS CONSTANT SHARP PAIN IN LT CALF THAT RADIATES DOWN TO TOES. LT FOOT HAS NON-PITTING EDEMA, WARM TO TOUCH, ERYTHEMA, SKIN TIGHT. +ROM, DIMINSIHED PEDAL PULSES. PT TACHY AT 106. PT AA0X4. BED IS DOWN, LOCKED, BED RAIL X 1, ERMD TO SEE PT. MEDHX:LT KNEE REPLACEMENT, LT HIP INFECTION RX:PERCACET, XANAX
[2018-12-17] MEDS ORDERED: PROMETHAZINE 25 MG/ML VIAL IM ONE (16:00)
[2018-12-17] MEDS ORDERED: DEXAMETHASONE 10 MG/ML VIAL IM ONE (16:00)
[2018-12-17] MEDS ORDERED: MORPHINE SULFATE 4 MG/ML SYR IM ONE (16:00)
--- NOTE | 2018-12-17 16:00 | NUR ---
DR BARROSO AT BEDSIDE
[2018-12-17] MEDS ORDERED: COLCHICINE 0.6 MG TAB PO ONE (16:15)
--- NOTE | 2018-12-17 16:35 | NUR ---
CALLED PHARMACY FOR COLCHICINE
[2018-12-17] MEDS ORDERED: COLCHICINE 0.6 MG TAB PO SCH (17:00)
[2018-12-17 17:26] VITALS: BP 128/89
--- NOTE | 2018-12-17 17:26 | NUR ---
Patient discharged with v/s stable. Written and verbal after care instructions given and explained. Patient alert, oriented and verbalized understanding of instructions. Ambulatory with CANE. All questions addressed prior to discharge. ID band removed. Patient advised to follow up with PMD. Rx of PREDNISONE, COLCHICINE, TRAMODOL HYDROCHLORIDE given. Patient educated on indication of medication including possible reaction and side effects. Opportunity to ask questions provided and answered.
== END 2018-12-17 17:26 | disposition home or self-care (01) ==
LOC: MED 14:30
DX: M10.072 Idiopathic gout, left ankle and foot (principal); G89.29 Other chronic pain; Z88.0 Allergy status to penicillin; Z88.8 Allergy status to other drugs, medicaments and biological substances; Z79.899 Other long term (current) drug therapy; Z96.652 Presence of left artificial knee joint
CPT/HCPCS: 73610; 73630; 96372; 99283; J1100; J2270; J2550; Q0092

== ENCOUNTER 2019-02-23 15:48 | Emergency (ER) | payer MEDICAID ==
[~2019-02-23] VITALS: Ht 167.6 cm; Wt 83.9 kg
[2019-02-23 15:59] VITALS: BP 125/73
--- NOTE | 2019-02-23 16:07 | NUR ---
PATIENT W/C ASSISTANCE TO BED 8.
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
[2019-02-23] MEDS: MORPHINE SULFATE 4 MG/ML SYR IM ONE (16:37)
[2019-02-23 16:51] VITALS: BP 118/68
--- NOTE | 2019-02-23 16:51 | NUR ---
Patient discharged with v/s stable. Written and verbal after care instructions given and explained. Patient alert, oriented and verbalized understanding of instructions. Wheel Chair Assisted with to LOBBY. All questions addressed prior to discharge. ID band removed. Patient advised to follow up with PMD. Rx of Mcallen given. Patient educated on indication of medication including possible reaction and side effects. Opportunity to ask questions provided and answered.
== END 2019-02-23 16:51 | disposition home or self-care (01) ==
LOC: MED 15:48
DX: M25.552 Pain in left hip (principal); L08.9 Local infection of the skin and subcutaneous tissue, unspecified; F17.200 Nicotine dependence, unspecified, uncomplicated; Z98.890 Other specified postprocedural states; Z79.899 Other long term (current) drug therapy; Z88.8 Allergy status to other drugs, medicaments and biological substances; Z88.0 Allergy status to penicillin
CPT/HCPCS: 96372; 99283; J2270

== ENCOUNTER 2019-05-08 20:47 | Emergency (ER) | payer MEDICAID ==
[~2019-05-08] VITALS: Ht 165.1 cm; Wt 84.8 kg
[2019-05-08 20:49] VITALS: BP 116/76
--- NOTE | 2019-05-08 21:14 | NUR ---
PT BIBA TO BED 03.
--- NOTE | 2019-05-08 21:19 | NUR ---
58 Y/O F BIBA BLS C/O LEFT HIP AND LEFT LEG PAIN. DENIES TRAUMA OR INJURY. PER PT SHE HAS BEEN DEALING WITH CHRONIC PAIN TO LEFT SIDE. PT TOOK PERCOCET 325MG AROUND THIS AFTERNOON WITHOUT ANY RELIEF. PER PT SHE NORMALLY TAKES PERCOCET RX Q8H. PT HAS SURGICAL INCISION FROM FROM LEFT KNEE REPLACEMENT. PAIN LEVEL 10/10 ACHING. ALLERGIES: PENICILLIN AND IBURPOFEN. MED HX: BONE INFECTIONS. BED RAIL IN LOWEST POSITION, SIDE RAIL UP X1. ERMD MADE AWARE OF PT STATUS.
--- NOTE | 2019-05-08 21:45 | NUR ---
DR. CHEUNG BEDSIDE EVALUATING PT
--- NOTE | 2019-05-08 21:45 | NUR ---
DR. CHEUNG AT PT BEDSIDE EVALUATING PT
[2019-05-08] MEDS ORDERED: HYDROcodone/APAP 10/325 MG 1 TAB TAB PO STA (21:59)
--- NOTE | 2019-05-08 22:19 | NUR ---
PT WENT TO RAD
--- NOTE | 2019-05-08 22:31 | NUR ---
PT BACK FROM RADIOLOGY
--- NOTE | 2019-05-08 22:40 | NUR ---
LABS DRAWN AND URINE COLLECTED GIVEN TO CHIEF MATE.
[2019-05-08 22:45] LABS: BASOPHILS % (AUTO) 0.4 % (0.0-2.0); EOSINOPHILS # (AUTO) 0.4 K/uL (0-0.4); EOSINOPHILS % (AUTO) 5.4 % (0.0-4.0); HEMATOCRIT 42.9 % (36-48); HEMOGLOBIN 14.6 g/dL (12.0-16.0); LYMPHOCYTES # (AUTO) 2.5 K/uL (2.5-16.5); LYMPHOCYTES % (AUTO) 35.6 % (20.5-51.1); MEAN CORPUSCULAR HEMOGLOBIN 31 pg (27-31); MEAN CORPUSCULAR HGB CONC 34 g/dL (33-37); MEAN CORPUSCULAR VOLUME 92.1 fL (80-94); MONOCYTES # (AUTO) 0.4 K/uL (0.8-1.0); NEUTROPHILS # (AUTO) 3.7 K/uL (1.8-7.7); NEUTROPHILS % (AUTO) 52.6 % (42.2-75.2); PLATELET COUNT (AUTO) 211 K/uL (140-450); RED BLOOD CELL COUNT(AUTO) 4.66 MIL/uL (4.20-5.40)
[2019-05-08 23:15] LABS: BARBITURATE, URINE NEGATIVE ng/ml (NEG <=200); BENZODIAZEPINE, URINE POSITIVE ng/mL (NEG <=200); CANNABINOID, URINE NEGATIVE ng/mL (NEG <=50); COCAINE, URINE NEGATIVE ng/mL (NEG <=300); PHENCYCLIDINE SCREEN,URINE NEGATIVE ng/mL (NEG <=25)
[2019-05-08 23:16] LABS: OPIATE, URINE NEGATIVE ng/mL (NEG <=2000)
[2019-05-08 23:30] LABS: ANION GAP 12.3 (8-16); CARBON DIOXIDE 27.7 mmol/L (21-32)
[2019-05-08 23:31] LABS: CREATININE 0.7 mg/dL (0.6-1.3)
[2019-05-08 23:33] LABS: TOTAL BILIRUBIN 0.6 mg/dL (0.0-1.0)
[2019-05-08 23:35] LABS: ALBUMIN 3.8 g/dL (3.4-5.0)
--- NOTE | 2019-05-09 00:28 | NUR ---
BED CRAFT AND WIPES PROVIDED TO PT
--- NOTE | 2019-05-09 00:36 | NUR ---
PT GOING TO CT
--- NOTE | 2019-05-09 00:56 | NUR ---
PT RETURNED FROM CT
--- NOTE | 2019-05-09 01:28 | NUR ---
DR. CHEUNG AT PT BEDSIDE EVALUATING PT.
[2019-05-09] MEDS ORDERED: HYDROcodone/APAP 5/325 MG 1 TAB TAB PO ONE (02:15)
--- NOTE | 2019-05-09 03:11 | NUR ---
PT PERFORMED ROAD TEST, AMBULATED WITH ASSISTANCE FOR FIRST HALF, ABLE TO AMBULATE UNASSISTED
--- NOTE | 2019-05-09 03:26 | NUR ---
Patient discharged with v/s stable. Written and verbal after care instructions given and explained. Pt encouraged to follow up with PCP and bone specialist. Patient alert, oriented and verbalized understanding of instructions. Wheel Chair Assisted with to car. All questions addressed prior to discharge. ID band removed. Patient advised to follow up with PMD. Rx of PERCOCET 10MG was given. Patient educated on indication of medication including possible reaction and side effects. Opportunity to ask questions provided and answered.
[2019-05-09 03:28] VITALS: BP 117/72
--- NOTE | 2019-05-09 03:30 | NUR ---
PT TO BE WHEELCHAIR ASSISTED TO LOBBY. AWAITING RIDE FROM FAMILY
== END 2019-05-09 03:26 | disposition home or self-care (01) ==
LOC: MED 20:47
DX: G89.29 Other chronic pain (principal); M25.552 Pain in left hip; M25.562 Pain in left knee; Z88.0 Allergy status to penicillin; Z88.6 Allergy status to analgesic agent; Z79.891 Long term (current) use of opiate analgesic; Z79.899 Other long term (current) drug therapy
CPT/HCPCS: 36415; 73502; 73562; 80053; 80305; 81002; 85025; 85651; 86140; 99284